=== PATIENT | male | born 1975 | race Caucasian/White ===

== ENCOUNTER 2016-01-24 10:00 | Outpatient (RCR) | payer BC ==
--- NOTE | 2016-01-15 13:48 | Diagnostic Imaging Report ---
INDICATION: Renal stones TECHNIQUE: Single view of the abdomen. CORRELATION STUDY: 09/08/2014 FINDINGS: Supine and upright radiographs of the abdomen demonstrates the bowel gas pattern to be unremarkable and without evidence for obstruction. No free air is seen under the diaphragms. Faint punctate calcification over the inferior pole right kidney. IMPRESSION: 1. Faint calcification over the inferior pole right kidney. Dictated by: Dictated on workstation # [id number]
[~2016-01-24 10:00] MED LIST: OXYC1CAP3 PO
[2016-02-01 17:00] LABS: STONE RISK AMMONIUM 30 mEq/24hr (14-62); STONE RISK CALCIUM 78 mg/day (< 250); STONE RISK CITRATE 175 mg/day (> 320); STONE RISK CREATININE 1028 mg/day (800-2000); STONE RISK MAGNESIUM 98 mg/day (> 60); STONE RISK OXALATE 22 mg/day (< 45); STONE RISK PH 6.9 (5.5-7.0); STONE RISK PHOSPHOROUS 738 mg/day (< 1100); STONE RISK POTASSIUM 15 mEq/24hr (19-135); STONE RISK SODIUM 82 mEq/24hr (< 200); STONE RISK STRUVITE 12.46 (< 75.00); STONE RISK SULFITE 7 mmol/day (< 30); STONE RISK TOTAL VOLUME 1.77 L/day (> 2.00); STONE RISK URIC ACID 248 mg/day (< 700); STONE RISK URIC ACID SAT 0.09 (< 2.00)
== END 2016-04-14 | disposition home or self-care (01) ==
LOC: LAB 10:00
PROVIDERS: ATTEND Urology
DX: N20.0 Calculus of kidney (principal)
CPT/HCPCS: 74000; 82140; 82340; 82507; 82570; 83735; 83945; 83986; 84105; 84133; 84300; 84392; 84560

== ENCOUNTER 2018-09-13 14:37 | Outpatient (RCR) | payer BC | END 2018-12-12 | disposition home or self-care (01) | LOC: LAB 14:37 | PROVIDERS: ATTEND Urology | DX: Z30.8 Encounter for other contraceptive management (principal) | CPT/HCPCS: 89321 ==

== ENCOUNTER 2021-11-11 09:16 | Outpatient (RCR) | payer BC ==
--- NOTE | 2021-11-11 11:04 | Diagnostic Imaging Report ---
INDICATION: Flank pain KUB 9:38 AM Bowel gas pattern is normal. There are no pathologic masses or calcifications. Osseous structures are unremarkable. IMPRESSION: No acute abnormalities in the abdomen. Dictated by: Dictated on workstation # [id number]
== END 2021-11-17 | disposition home or self-care (01) ==
LOC: RAD 09:16
PROVIDERS: ATTEND Urology
DX: N20.0 Calculus of kidney (principal)
CPT/HCPCS: 36415; 74018; 82140; 82340; 82507; 82570; 83735; 83945; 83986; 84105; 84133; 84300; 84392; 84560